=== PATIENT | male | born 1955 | race African-American/Black ===

== ENCOUNTER 2023-04-09 07:38 | Emergency (ER) | payer OTHER ==
[2023-04-09 08:04] VITALS: PULSE 66; RESP 18; BMI 27.5
[2023-04-09] MEDS ORDERED: IBUPROFEN 400 MG TABLET (FP) PO ONE ×2 (08:44→08:49)
[2023-04-09] MEDS ORDERED: METHOCARBAMOL 500 MG TABLET PO ONE (08:44)
[2023-04-09] MEDS ORDERED: LIDOCAINE 5% TOPICAL PATCH TP ONE (08:44)
[2023-04-09] MEDS ORDERED: METHOCARBAMOL 500 MG TABLET ONE (08:50)
[2023-04-09] MEDS ORDERED: LIDOCAINE 5% TOPICAL PATCH ONE (09:50)
[2023-04-09 09:52] LABS: EPITHELIAL CELLS FEW /hpf
[2023-04-09 11:12] VITALS: BP 186/96; TEMP 99.1
[2023-04-09] MEDS ORDERED: LIDOCAINE PATCH REMOVAL MC SCH (22:00)
== END 2023-04-09 12:54 | disposition home or self-care (01) ==
LOC: FER 07:38
DX: R10.9 Unspecified abdominal pain (principal); R11.0 Nausea; N20.0 Calculus of kidney
CPT/HCPCS: 74176-TC; 81003; 81015; 87086; 87186; 99284-25